=== PATIENT | female | born 1990 | race African-American/Black ===

== ENCOUNTER 2022-12-12 13:27 | Emergency (ER) | payer MEDICAID ==
[~2022-12-12] VITALS: Ht 165.1 cm; Wt 50.0 kg
[2022-12-12 13:31] VITALS: BP_DIAS 71; PULSE 70; RESP 18; TEMP 97.6; O2SAT 100
[2022-12-12 15:30] LABS: BASOPHILS % 0.5 % (0.0-2.0); EOSINOPHILS % 0.2 % (0.0-5.0); HEMATOCRIT. 37.4 % (36.0-48.0); HEMOGLOBIN. 12.3 g/dL (12.0-16.0); LYMPHOCYTES % 14.9 % (20.0-50.0); MEAN CORPUSCULAR HEMOGLOBIN 27.8 pg (28.0-32.0); MEAN CORPUSCULAR VOLUME 84.8 fL (81.0-99.0); MEAN PLATELET VOLUME 8.7 fl (7.4-10.4); MONOCYTES % 7.7 % (2.0-8.0); NEUTROPHILS % 76.7 % (40.0-76.0); PLATELET 210 x1000/uL (130-400); RED BLOOD CELL COUNT 4.41 mill/uL (4.2-5.4); RED CELL DISTRIBUTION WIDTH 15.9 % (11.6-14.6)
[2022-12-12 15:39] LABS: CHLORIDE 111 mEq/L (98-107)
[2022-12-12 15:43] LABS: HCG SCREEN NEGATIVE
[2022-12-12 15:49] LABS: ETHANOL BLOOD < 10 mg/dL (-10)
[2022-12-12] MEDS ORDERED: ONDA4TAB50 MT (19:05)
[2022-12-12 19:27] VITALS: BP_SYST 110
== END 2022-12-12 19:37 | disposition home or self-care (01) ==
LOC: ER 13:27
DX: R10.33 Periumbilical pain (principal); R11.2 Nausea with vomiting, unspecified
CPT/HCPCS: 36415; 74176; 80053; 80320; 84703; 85025; 99284; G0480